=== PATIENT | female | born 1975 | race Caucasian/White ===

== ENCOUNTER 2022-08-11 11:29 | Outpatient (CLI) | payer OTHER, SELFPAY | END 2022-08-11 11:30 | disposition home or self-care (01) | PROVIDERS: Visit Provider Family Medicine | DX: R53.83 Other fatigue (principal); E03.9 Hypothyroidism, unspecified; E66.01 Morbid (severe) obesity due to excess calories; R63.5 Abnormal weight gain; G47.10 Hypersomnia, unspecified | CPT/HCPCS: 80053; 84443 ==

== ENCOUNTER 2022-09-02 20:58 | Outpatient (CLI) | payer OTHER, SELFPAY ==
--- NOTE | 2022-09-13 12:20 | W.PM.SLEEP ---
Sleep Study Details Details Interpreting Provider: Janice Date of Sleep Study: 09/02/22 Sleep Study Details: STUDY TYPE:? In-hospital with CPAP titration ? BMI:? 25.4 ORDERING PROVIDER:? Victor Manuel INDICATION:? Concerns about sleep apnea ? SLEEP SUMMARY:? Total sleep time 328 minutes, efficiency 84.3, arousal index 57.1 RESPIRATORY SUMMARY:? Mean oxygen awake 93, asleep 90. Low oxygen 65, 78.3 minutes oxygen between 80 and 88%, 11.6 minutes oxygen between 70 and 79% AHI 134. There was no REM stage sleep seen in the diagnostic portion of the study. The entire diagnostic portion of study was done in the nonsupine position new Patient was titrated on CPAP to a pressure of 14 which included 22.5 minutes of REM stage sleep seen in the nonsupine position. This decreased AHI to 5.6 and RDI to 8.4. The patient also slept well at a pressure of 11 with an AHI of 4.7 and 40 minutes of nonsupine REM sleep PERIODIC LIMB MOVEMENTS OF SLEEP:? Pretreatment index 0, post treatment index 34.3, index with arousal 1.5 CARDIAC:? Awake 84, asleep 80. No arrhythmias noted IMPRESSION:? Severe obstructive sleep apnea with mostly successful titration in the nonsupine position RECOMMENDATION: Initiate CPAP auto set pressure 11 to 17. The patient should only sleep in the nonsupine position.
== END 2022-09-02 20:59 | disposition home or self-care (01) ==
PROVIDERS: PCP Family Medicine; Visit Provider Family Medicine
DX: G47.33 Obstructive sleep apnea (adult) (pediatric) (principal)
CPT/HCPCS: 95811

== ENCOUNTER 2022-12-13 13:39 | Outpatient (CLI) | payer OTHER, SELFPAY | END 2022-12-13 13:40 | disposition home or self-care (01) | LOC: LKVREF 13:40 | PROVIDERS: PCP Family Medicine; Visit Provider Otolaryngology | DX: G25.81 Restless legs syndrome (principal) | CPT/HCPCS: 82728 ==